=== PATIENT | female | born 1985 | race Caucasian/White ===

== ENCOUNTER → 2017-03-16 19:32 | Emergency (ER) | payer MEDICAID ==
[2014-05-26 06:17] VITALS: BMI 26.9
[~2017-03-16 19:32] MED LIST: PROZAC40 MG PO; XANAX1 MG PO
== END | disposition left against medical advice (07) ==
LOC: D.ER 19:32
DX: Z00.8 Encounter for other general examination (principal)

== ENCOUNTER 2017-03-16 20:07 | Emergency (ER) | payer MEDICAID ==
[2014-05-26 06:17] VITALS: BMI 26.9
== END 2017-03-17 00:06 | disposition home or self-care (01) ==
LOC: D.ER 20:07
DX: F41.9 Anxiety disorder, unspecified (principal); F43.0 Acute stress reaction; F17.200 Nicotine dependence, unspecified, uncomplicated